=== PATIENT | female | born 1985 | race Caucasian/White ===

== ENCOUNTER 2017-03-01 21:12 | Inpatient (IN) | payer BC ==
[~2017-03-01] VITALS: Ht 160 cm; Wt 93.9 kg
[2017-03-01] MEDS ORDERED: LR 1,000 ML IV ONE (22:06)
[2017-03-01] MEDS ORDERED: OXYTOCIN/NORMAL SALINE 1,000 ML IV SCH (22:06)
[2017-03-01] MEDS ORDERED: LR 1,000 ML IV SCH (22:06)
[2017-03-01] MEDS ORDERED: NALBUPHINE HCL 10 MG/ML AMP IM PRN (22:15)
[2017-03-01] MEDS ORDERED: NALBUPHINE HCL 10 MG/ML AMP IVP PRN (22:15)
[2017-03-01] MEDS ORDERED: TERBUTALINE SULFATE 1 MG/ML VIAL SUBCUT ONE (22:15)
[2017-03-01 22:27] LABS: BASOPHILS # (AUTO) 0.1 K/uL (0.0-0.2); BASOPHILS % (AUTO) 1.1 % (0.0-2.0); EOSINOPHILS # (AUTO) 0.1 K/uL (0.0-0.4); EOSINOPHILS % (AUTO) 0.8 % (0.0-4.0); HEMATOCRIT 39.4 % (36-48); HEMOGLOBIN 13.2 g/dL (12.0-16.0); LYMPHOCYTES # (AUTO) 2.4 K/uL (1.0-5.5); LYMPHOCYTES % (AUTO) 21.7 % (20.5-51.5); MEAN CORPUSCULAR HEMOGLOBIN 28 pg (27-31); MEAN CORPUSCULAR HGB CONC 34 % (32-36); MEAN CORPUSCULAR VOLUME 85 fL (79.0-98.0); MONOCYTES # (AUTO) 0.6 K/uL (0.0-1.0); MONOCYTES % (AUTO) 5.3 % (1.7-9.3); NEUTROPHILS # (AUTO) 7.9 K/uL (1.8-7.7); NEUTROPHILS % (AUTO) 71.1 % (40.0-70.0); PLATELET COUNT (AUTO) 211 K/uL (130-430); RED BLOOD CELL COUNT(AUTO) 4.65 MIL/uL (4.2-6.2); RED CELL DISTRIBUTION WIDTH 13.8 % (9.0-15.0); WHITE BLOOD COUNT (AUTO) 11.1 K/uL (4.8-10.8)
[2017-03-01 22:39] LABS: ALBUMIN 2.4 g/dL (3.4-4.8); CALCIUM 9.2 mg/dL (8.4-11.0); CREATININE 0.51 mg/dL (0.55-1.30); POTASSIUM 3.9 mmol/L (3.5-5.1); TOTAL BILIRUBIN 0.3 mg/dL (0.0-1.0); TOTAL PROTEIN, SERUM 6.9 g/dL (6.4-8.3)
[2017-03-02] MEDS ORDERED: OXYTOCIN/NORMAL SALINE 1,000 ML IV SCH (09:57)
[2017-03-02] MEDS ORDERED: OXYTOCIN/NORMAL SALINE 1,000 ML IV ONE (09:57)
[2017-03-02] MEDS ORDERED: MEASLES,MUMPS&RUBELLA VACC/PF 12500 UNIT/0.5 ML VIAL SUBQ PRN (10:00)
[2017-03-02] MEDS ORDERED: RHO(D) IMMUNE GLOBULIN/MALTOSE 1500 UNITS/1.3 ML (WINHRO) IM PRN (10:00)
[2017-03-02] MEDS ORDERED: METHYLERGONOVINE MALEATE 0.2 MG TABLET PO PRN (10:00)
[2017-03-02] MEDS ORDERED: DERMOPLAST SPRAY TP PRN (10:00)
[2017-03-02] MEDS ORDERED: ANUSOL 1 EA SUPP.RECT (PREPARATION H) RC PRN (10:00)
[2017-03-02] MEDS ORDERED: GLYCERIN/WITCH HAZEL (TUCKS PADS) TP PRN (10:00)
[2017-03-02] MEDS ORDERED: OXYCODONE/ACETAMINOPHEN 5-325 TABLET PO PRN ×2 (10:00)
[2017-03-02] MEDS ORDERED: LANOLIN 7 GM OINT. TP PRN (10:00)
[2017-03-02] MEDS ORDERED: HYDROCORTISONE 0.5%, 28.35 GM TOPICAL CREAM TP PRN (10:00)
[2017-03-02] MEDS: IBUPROFEN 600 MG TABLET PO PRN ×2 (12:17→18:23)
[2017-03-02] MEDS: DOCUSATE SODIUM 100 MG CAPSULE PO PRN (16:35)
[2017-03-02] MEDS ORDERED: TEMAZEPAM 15 MG CAPSULE PO PRN (21:00)
[2017-03-02] MEDS: IBUPROFEN 600 MG TABLET PO SCH (23:46)
[2017-03-03] MEDS ORDERED: IBUPROFEN 600 MG TABLET ONE (05:41)
[2017-03-03] MEDS: DOCUSATE SODIUM 100 MG CAPSULE PO PRN ×2 (05:44→12:19)
[2017-03-03] MEDS: IBUPROFEN 600 MG TABLET PO SCH (05:45)
[2017-03-03 07:40] LABS: HEMATOCRIT 32.8 % (36-48); HEMOGLOBIN 11.1 g/dL (12.0-16.0)
[2017-03-03] MEDS: SENNOSIDES/DOCUSATE SODIUM 1 TAB TABLET(SENOKOT-S) PO PRN (12:18)
[2017-03-03] MEDS: IBUPROFEN 600 MG TABLET PO PRN ×2 (12:19→17:46)
[2017-03-04] MEDS: IBUPROFEN 600 MG TABLET PO PRN ×3 (00:08→11:50)
[2017-03-04] MEDS: DOCUSATE SODIUM 100 MG CAPSULE PO PRN (08:11)
[2017-03-04] MEDS: SENNOSIDES/DOCUSATE SODIUM 1 TAB TABLET(SENOKOT-S) PO PRN (08:11)
[2017-03-04] MEDS ORDERED: LIDOCAINE PF 1% 30ML(POUR BTL) INJ ONE (13:32)
[2017-03-04] MEDS ORDERED: MINERAL OIL 30 ML UDC PO ONE (13:32)
== END 2017-03-04 13:33 | disposition home or self-care (01) | DRG 775 ==
LOC: SPU 21:12
PROVIDERS: ADMIT Obstetrics & Gynecology; ATTEND Obstetrics & Gynecology
PROC: 10E0XZZ Delivery of Products of Conception, External Approach (ICD-10-PCS; principal; 2017-03-02)
PROC: 3E0R3CZ (ICD-10-PCS; 2017-03-02)
PROC: 00HU33Z Insertion of Infusion Device into Spinal Canal, Percutaneous Approach (ICD-10-PCS; 2017-03-02)
PROC: 3E0134Z Introduction of Serum, Toxoid and Vaccine into Subcutaneous Tissue, Percutaneous Approach (ICD-10-PCS; 2017-03-02)
DX: O32.6XX0 Maternal care for compound presentation, not applicable or unspecified (principal); O70.1 Second degree perineal laceration during delivery; Z68.36 Body mass index [BMI] 36.0-36.9, adult; E66.01 Morbid (severe) obesity due to excess calories; O99.214 Obesity complicating childbirth; Z3A.37 37 weeks gestation of pregnancy; Z37.0 Single live birth; Z23 Encounter for immunization
CPT/HCPCS: 36415; 80053; 85018-TC; 85025; 86592; 86886; 86900; 86901; J2001; J2590; J7120